=== PATIENT | female | born 1975 | race Caucasian/White ===

== ENCOUNTER 2022-02-14 09:27 | Emergency (ER) | payer OTHER ==
[~2022-02-14] VITALS: Ht 157.5 cm; Wt 85.3 kg
[2022-02-14 09:30] VITALS: BP_SYST 134
[2022-02-14] MEDS ORDERED: NALOXONE HCL 2 MG/2 ML SYR IVP ONE (09:45)
--- NOTE | 2022-02-14 10:05 | NUR ---
md at bedside 12 lead done pre hospital 18 L ac/ pt alert follows commands stable
[2022-02-14 10:29] LABS: ANION GAP 6 (5-15); CALCIUM 8.9 mg/dL (8.4-11.0); CHLORIDE 104 mmol/L (98-107); CREATININE 1.13 mg/dL (0.55-1.30); GLUCOSE 202 mg/dL (70-99); POTASSIUM 3.6 mmol/L (3.5-5.1); SODIUM SERUM 140 mmol/L (136-145); UREA NITROGEN, BLOOD 17 mg/dL (8-21)
[2022-02-14 10:35] LABS: ALANINE AMINOTRANSFERASE 24 U/L (12-78); ALBUMIN 3.2 g/dL (3.4-4.8); ASPARTATE AMINOTRANSFERASE 20 U/L (10-37); GFR AFRICAN AMERICAN 67 mL/min (>90); TOTAL BILIRUBIN < 0.1 mg/dL (0.0-1.0)
[2022-02-14 10:48] LABS: BASOPHILS % (AUTO) 0.5 % (0.0-2.0); EOSINOPHILS # (AUTO) 0.3 K/uL (0.0-0.4); EOSINOPHILS % (AUTO) 4.4 % (0.0-4.0); HEMATOCRIT 35.8 % (36-48); HEMOGLOBIN 11.8 g/dL (12.0-16.0); LYMPHOCYTES # (AUTO) 2.3 K/uL (1.0-5.5); LYMPHOCYTES % (AUTO) 39.5 % (20.5-51.5); MEAN CORPUSCULAR HEMOGLOBIN 26 pg (27-31); MEAN CORPUSCULAR HGB CONC 33 % (32-36); MEAN CORPUSCULAR VOLUME 78 fL (79.0-98.0); MONOCYTES # (AUTO) 0.5 K/uL (0.0-1.0); MONOCYTES % (AUTO) 8.6 % (1.7-9.3); NEUTROPHILS # (AUTO) 2.7 K/uL (1.8-7.7); PLATELET COUNT (AUTO) 374 K/uL (130-430); RED BLOOD CELL COUNT(AUTO) 4.57 MIL/uL (4.2-6.2); WHITE BLOOD COUNT (AUTO) 5.8 K/uL (4.8-10.8)
[2022-02-14 11:04] LABS: HCG,QUANTITATIVE 0 mIU/ML (0-6)
[2022-02-14 11:31] LABS: ALCOHOL, BLOOD < 3 mg/dL (<10)
--- NOTE | 2022-02-14 12:20 | NUR ---
PY AMBULATED WITHOUT ASSISTANCE URINE TO LAB
[2022-02-14 14:02] LABS: BARBITURATE, URINE NEGATIVE (NEG <=200); BENZODIAZEPINE, URINE NEGATIVE (NEG <=150); CANNABINOID, URINE NEGATIVE (NEG <=50); COCAINE, URINE NEGATIVE (NEG <=150); METHAMPHETAMINES SCREEN,URINE POSITIVE (NEG <=500); OPIATE, URINE NEGATIVE (NEG <=100); PHENCYCLIDINE SCREEN,URINE POSITIVE (NEG <=25); UR TRICYCLIC ANTIDEPRESSANTS NEGATIVE (NEG <=300); URINE AMPHETAMINE POSITIVE (NEG <=500); URINE METHADONE NEGATIVE (NEG <=200); URINE OXYCODONE SCREEN NEGATIVE (NEG <=100); URINE PROPOXYPHENE SCREEN NEGATIVE (NEG <=300)
[2022-02-14 18:45] VITALS: BP_SYST 124
--- NOTE | 2022-02-14 19:10 | NUR ---
REPORT TO KATHY GALAVIZ
== END 2022-02-14 19:10 | disposition home or self-care (01) ==
LOC: SED 09:27
DX: T40.411A Poisoning by fentanyl or fentanyl analogs, accidental (unintentional), initial encounter (principal); Z88.0 Allergy status to penicillin; Z79.899 Other long term (current) drug therapy; Y92.89 Other specified places as the place of occurrence of the external cause
CPT/HCPCS: 99285; 96374; 71045; 80307; 80053; 84702; 85025; 84484; 36415; 93005; 81025; G0482; J2310